=== PATIENT | female | born 1950 | race Caucasian/White ===

== ENCOUNTER 2020-07-30 22:54 | Emergency (ER) | payer MEDICARE, BC ==
[2020-07-30] MEDS ORDERED: Sodium Chloride 0.9% 1,000 ML IV ONE (23:00)
[2020-07-30] MEDS ORDERED: Pantoprazole 40 MG Vial IVPUSH ONE (23:05)
--- NOTE | 2020-07-30 23:13 | EDM.PDOC ---
ED HPI GENERAL MEDICAL PROBLEM - General Chief Complaint: Abdominal Pain Stated Complaint: vomiting blood Time Seen by Provider: 07/30/20 23:05 Source of Information: Reports: Patient History Limitations: Reports: No Limitations - History of Present Illness INITIAL COMMENTS - FREE TEXT/NARRATIVE: This patient is a 69 year old female that presents to the ER. Patient reports that she went to bed about 8:45pm, she was feeling fine without complaint. She reports at about 9:45pm she awoke from her sleep, felt hot, sweaty, nauseated. She reports throwing up 3 times bright red blood. Patient reports she called [facility] because thats where her doctor is located. She reports that they told her to come to the ER. Patient reports her friend was driving her to [facility], but while in route, patient became generally weak, near syncope, diaphoretic. Because of this, they called 911, who called us to alert us she was in route here. As soon, as RN hung up from dispatch, patient arrived outside in a truck driven by friend. Patient was assisted in wheelchair from truck by Jemima KERN and myself. When getting out of truck, patient appears confused, disoriented, weak, but awake. Patient has emesis back on lap with bright red blood in truck, about 20ml. Patient is awake and alert in ER, but weak. As soon, we enter the ER, patient reports she needs to have a BM. Patient placed on bedside toilet. She has a large BM that is black in color. This was tested and is + for blood. Patient assisted into bed. Patient reports she feels lightheaded. Patient denies headache, n, fever, abd pain, back pain, chest pain, shortness of breath. Onset: Today Onset Date: 07/30/20 Onset Time: 09:45 Severity: Moderate Improves with: Reports: None Worsens with: Reports: None Associated Symptoms: Reports: Diaphoresis, Malaise, Nausea/Vomiting, Weakness. Denies: Confusion, Chest Pain, Cough, cough w sputum, Fever/Chills, Headaches, Loss of Appetite, Rash, Seizure, Shortness of Breath, Syncope - Related Data Allergies Allergy/AdvReac Type Severity Reaction Status Date / Time bee pollen Allergy Anaphylactic Verified 07/30/20 22:58 Shock mold Allergy Cannot Verified 07/30/20 22:58 Remember Penicillins Allergy Anaphylactic Verified 07/30/20 22:58 Shock Home Meds: Home Meds atorvaSTATin [Lipitor] 10 mg PO BEDTIME 04/13/16 [History] Venlafaxine [Effexor XR] 75 mg PO DAILY 04/16/16 [History] Albuterol/Ipratropium [DuoNeb 3.0-0.5 MG/3 ML] 3 ml NEB QIDRT PRN 07/30/20 [History] Aspirin [Halfprin] 81 mg PO DAILY 07/30/20 [History] Montelukast [Singulair] 10 mg PO DAILY 07/30/20 [History] Past Medical History HEENT History: Reports: Other (See Below) Other HEENT History: open sinus membrane, plugged right ear Neurological History: Reports: Other (See Below) 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 Denies: Chest Pain Endocrine: Reports: No Symptoms GI/Abdominal: Reports: Black Stool, Hematemesis, Nausea, Vomiting. Denies: Abdominal Pain : Reports: No Symptoms Musculoskeletal: Reports: No Symptoms Skin: Reports: No Symptoms Neurological: Reports: Syncope (near syncope) Psychiatric: Reports: Anxiety Hematologic/Lymphatic: Reports: No Symptoms Immunologic: Reports: No Symptoms ED EXAM, GI/ABD - Physical Exam Exam: See Below Exam Limited By: No Limitations General Appearance: Alert, WD/WN, Anxious, Moderate Distress Eyes: Bilateral: Pale Conjunctiva Ears: Normal External Exam, Normal Canal, Hearing Grossly Normal, Normal TMs Nose: Normal Inspection, Normal Mucosa, No Blood Throat/Mouth: Normal Inspection, Normal Lips, Normal Teeth, Normal Gums, Normal Oropharynx, Normal Voice, No Airway Compromise Head: Atraumatic, Normocephalic Neck: Normal Inspection, Supple, Non-Tender, Full Range of Motion Respiratory/Chest: No Respiratory Distress, Lungs Clear, Normal Breath Sounds, No Accessory Muscle Use, Chest Non-Tender Cardiovascular: Normal Peripheral Pulses, Regular Rate, Rhythm, No Edema, No Gallop, No JVD, No Murmur, No Rub GI/Abdominal Exam: Normal Bowel Sounds, Soft, Non-Tender, No Organomegaly, No Distention, No Abnormal Bruit, No Mass, Pelvis Stable (Female) Exam: Deferred Rectal (Female) Exam: Deferred Back Exam: Normal Inspection, Full Range of Motion. No: CVA Tenderness (L), CVA Tenderness (R) Extremities: Normal Inspection, Normal Range of Motion, Non-Tender, No Pedal Edema, Normal Capillary Refill Neurological: Alert, Oriented, Normal Cognition, No Motor/Sensory Deficits, Confused (When getting from truck disoriented, confused. Became more alert once in the ER.), Other (drowsy, but alert in stretcher. When getting from truck disoriented, confused.) Psychiatric: Anxious Skin Exam: Warm, Intact, No Rash, Diaphoretic, Pallor Lymphatic: No Adenopathy Course - Vital Signs Last Recorded V/S: Last Vital Signs Temp 96 F L 07/30/20 23:10 Pulse 81 07/31/20 01:49 Resp 18 07/31/20 00:30 BP 138/68 07/31/20 01:49 Pulse Ox 97 07/31/20 00:30 - Orders/Labs/Meds Orders: Active Orders 24 hr Category Date Time Status Abdomen Pelvis w Cont [CT] Stat Exams 07/30/20 23:22 Taken Chest w wo Cont [CT] Stat Exams 07/30/20 23:47 Taken CORONAVIRUS COVID-19 RAPID [MOLEC] Stat Lab 07/31/20 00:50 Ordered Pantoprazole [ProTONIX IV] 40 mg Med 07/30/20 23:15 Active Sodium Chloride 0.9% [Normal Saline] 100 ml IV .CONTINUOUS Medication Orders Pantoprazole Sodium 40 mg/ (Sodium Chloride) 100 mls @ 20 mls/hr IV .CONTINUOUS MAREN Last Admin: 07/30/20 23:13 Dose: 20 mls/hr Documented by: MARYSOL Labs: Laboratory Tests 07/30/20 07/30/20 07/30/20 Range/Units 22:57 22:57 23:07 WBC 16.8 H (5.0-10.0) 10^3/uL RBC 4.02 (4.00-5.50) 10^6/uL Hgb 12.5 (12.0-16.0) g/dL Hct 36.4 L (37.0-47.0) % MCV 90.5 (82.0-94.0) fL MCH 31.1 (27.0-32.0) pg MCHC 34.3 (33.0-38.0) g/dL RDW Coeff of Raven 12.1 (11.0-15.0) % Plt Count 398 (150-400) 10^3/uL Neut % (Auto) 58.9 (35-85) % Lymph % (Auto) 31.5 (10-55) % Price % (Auto) 8.1 (0-16) % Eos % (Auto) 1.1 (0-5) % Baso % (Auto) 0.4 (0-3) % Neut # (Auto) 9.88 H (1.80-7.00) 10^3/uL Lymph # (Auto) 5.30 H (1.00-4.80) 10^3/uL Price # (Auto) 1.36 H (0.00-0.80) 10^3/uL Eos # (Auto) 0.19 (0.00-0.45) 10^3/uL Baso # (Auto) 0.07 10^3/uL PT 11.6 (9.7-12.3) SEC INR 1.06 (0.92-1.18) Sodium (136-145) mEq/L Potassium (3.5-5.0) mEq/L Chloride (98-106) mEq/L Carbon Dioxide (21-32) mmol/L BUN (7-18) mg/dL Creatinine (0.6-1.0) mg/dL Est Cr Clr Drug Dosing mL/min Estimated GFR (MDRD) (>=60) mL/min Glucose (75-99) mg/dL Lactic Acid (0.4-2.0) mmol/L Calcium (8.4-10.1) mg/dL Total Bilirubin (0.0-1.0) mg/dL AST (15-37) U/L ALT (12-78) U/L Alkaline Phosphatase (46-116) U/L C-Reactive Protein (0.2-0.8) mg/dL Total Protein (6.4-8.2) g/dL Albumin (3.4-5.0) g/dL Blood Type O POSITIVE Gel Antibody Screen Negative 07/30/20 07/30/20 Range/Units 23:07 23:07 WBC (5.0-10.0) 10^3/uL RBC (4.00-5.50) 10^6/uL Hgb (12.0-16.0) g/dL Hct (37.0-47.0) % MCV (82.0-94.0) fL MCH (27.0-32.0) pg MCHC (33.0-38.0) g/dL RDW Coeff of Raven (11.0-15.0) % Plt Count (150-400) 10^3/uL Neut % (Auto) (35-85) % Lymph % (Auto) (10-55) % Price % (Auto) (0-16) % Eos % (Auto) (0-5) % Baso % (Auto) (0-3) % Neut # (Auto) (1.80-7.00) 10^3/uL Lymph # (Auto) (1.00-4.80) 10^3/uL Price # (Auto) (0.00-0.80) 10^3/uL Eos # (Auto) (0.00-0.45) 10^3/uL Baso # (Auto) 10^3/uL PT (9.7-12.3) SEC INR (0.92-1.18) Sodium 140 (136-145) mEq/L Potassium 4.1 (3.5-5.0) mEq/L Chloride 103 (98-106) mEq/L Carbon Dioxide 23 (21-32) mmol/L BUN 24 H D (7-18) mg/dL Creatinine 1.0 (0.6-1.0) mg/dL Est Cr Clr Drug Dosing 40.63 mL/min Estimated GFR (MDRD) 55 L (>=60) mL/min Glucose 167 H (75-99) mg/dL Lactic Acid 2.4 H (0.4-2.0) mmol/L Calcium 8.7 (8.4-10.1) mg/dL Total Bilirubin 0.7 (0.0-1.0) mg/dL AST 16 (15-37) U/L ALT 24 (12-78) U/L Alkaline Phosphatase 97 (46-116) U/L C-Reactive Protein < 0.2 L (0.2-0.8) mg/dL Total Protein 6.7 (6.4-8.2) g/dL Albumin 3.3 L (3.4-5.0) g/dL Blood Type Gel Antibody Screen Meds: Medications Generic Name Dose Route Start Last Admin Trade Name Freq PRN Reason Stop Dose Admin Pantoprazole Sodium 40 mg/ 100 mls @ 20 mls/hr 07/30/20 23:15 07/30/20 23:13 Sodium Chloride IV 20 mls/hr .CONTINUOUS MAREN Administration Discontinued Medications Generic Name Dose Route Start Last Admin Trade Name Freq PRN Reason Stop Dose Admin Sodium Chloride 1,000 mls @ 999 mls/hr 07/30/20 23:00 07/30/20 23:00 Normal Saline IV 07/31/20 00:00 999 mls/hr .BOLUS ONE Administration Iopamidol 100 ml 07/30/20 23:38 07/31/20 00:14 Iopamidol 755 Mg/Ml 100 Ml Bottle IVPUSH 07/30/20 23:39 100 ml ONETIME ONE Administration Pantoprazole Sodium 80 mg 07/30/20 23:05 07/30/20 23:12 Pantoprazole 40 Mg Vial IVPUSH 07/30/20 23:06 80 mg ONETIME ONE Administration - Radiology Interpretation Free Text/Narrative:: CT Abd/Pelvis with contrast: No acute findings Chest with and without contrast: no cause of hemoptysis. Incidental circumferential mucosal thickening of the distal esophagus with unusual paraesophageal lymph nodes. Recommend GI consultation for direct visualization if not done recently. CT Results Date: 07/31/20 CT Results Time: 01:16 - Re-Assessments/Exams Free Text/Narrative Re-Assessment/Exam: 07/30/20 23:00 Patient hooked to woodworking machine operator, her BP is 94/72, HR 85. Patient appears pallor in color. Patient NOT on beta leland. IV started, NS fluid bolus started, Protonix started, labs drawn. Patient appears generally weak, drowsy appearing. IV fluids started due to active bleeding with hypotension. 07/30/20 23:28 Current BP is 109/76, HR 70. Patient is sitting up in stretcher. Reports she doesnt feel as hot and sweaty. She reports she has no pain. Reports her lighthe adedness has improved. Patient is now more coherent, alert, and oriented. She reports that from the time she woke up to the time she entered the ER, patient does not recall that time period. She now reports to me that she did not actually vomit. She has now given me new information. She reports that prior to going to bed, she swallowed her pills. She reports that one of her pills got stuck in her throat. She reports it felt like it was still there when she went to bed, then she fell asleep. She reports that she then woke up and coughed x3 with a gurgling sensation n her throat. She reports each time she coughed it was bright red blood with clots. She reports she does not think that she actually vomited. Due to patient now changed history, I will also include a contrast and without contrast CT of the chest. Patient reports she no longer has a sensation of a pill stuck in her throat. 07/31/20 00:00 I called [facility] about this patient for transfer. They will call me back. 07/31/20 00:32 [facility] has called back. I spoke to Dr. Mcclellan about this patient for transfer. He reports patient does need to be transferred, but would like to have CT results before determining what department to transfer patient to in the hospital, ER or floor. Still awaiting CT results. I asked about going ahead and transferring patient prior to having CT results, they will call me back. Patient BP is currently 140/61, HR 84 after 1 L NS. Patient reports she is feeling much better. 07/31/20 00:51 [facility] has called back, they would like CT results prior to transfer. I will call them with results once I have them. 07/31/20 01:20 I called and spoke to Godfrey at [facility] [place]. I have given her results of the CT. She will relay the message to Dr. Mcclellan and see if we can transfer the patient. 07/31/20 01:42 I called [facility] and spoke to [facility]. She has informed me that Dr. Mcclellan has accepted the patient. [facility] is in route to transfer patient. Patient reports she has no complaints at this time. BP 144/70, HR 78. Departure - Departure Time of Disposition: 02:03 Disposition: DC/Tfer to Acute Hospital 02 Condition: Fair Clinical Impression: Hemoptysis, Esophageal thickening GI bleed Qualifiers: GI bleed type/associated pathology: unspecified gastrointestinal hemorrhage type Qualified Code(s): K92.2 - Gastrointestinal hemorrhage, unspecified Esophageal foreign body Qualifiers: Encounter type: initial encounter Qualified Code(s): T18.108A - Unspecified foreign body in esophagus causing other injury, initial encounter - Discharge Information *PRESCRIPTION DRUG MONITORING PROGRAM REVIEWED*: Not Applicable *COPY OF PRESCRIPTION DRUG MONITORING REPORT IN PATIENT KYLE: Not Applicable Referrals: Nathaly Kaur MD [Primary Care Provider] - Forms: ED Department Discharge Sepsis Event Note (ED) - Evaluation Sepsis Screening Result: No Definite Risk - Focused Exam Vital Signs: Vital Signs Temp Pulse Resp BP Pulse Ox 07/31/20 01:49 81 138/68 07/31/20 00:30 84 18 140/61 97 07/31/20 00:15 86 18 139/78 100 07/31/20 00:00 118/49 L 07/30/20 23:45 65 18 116/53 L 96 07/30/20 23:30 70 18 115/59 L 95 07/30/20 23:15 72 18 109/56 L 96 07/30/20 23:10 96 F L 69 18 119/57 L 96 07/30/20 23:05 16 106/58 L 99 07/30/20 23:00 18 94/72 97 07/30/20 22:55 95.8 F L - My Orders Last 24 Hours: My Active Orders 07/30/20 23:15 Pantoprazole [ProTONIX IV] 40 mg Sodium Chloride 0.9% [Normal Saline] 100 ml IV .CONTINUOUS 07/30/20 23:22 Abdomen Pelvis w Cont [CT] Stat 07/30/20 23:47 Chest w wo Cont [CT] Stat 07/31/20 00:50 CORONAVIRUS COVID-19 RAPID [MOLEC] Stat - Assessment/Plan Last 24 Hours: My Active Orders 07/30/20 23:15 Pantoprazole [ProTONIX IV] 40 mg Sodium Chloride 0.9% [Normal Saline] 100 ml IV .CONTINUOUS 07/30/20 23:22 Abdomen Pelvis w Cont [CT] Stat 07/30/20 23:47 Chest w wo Cont [CT] Stat 07/31/20 00:50 CORONAVIRUS COVID-19 RAPID [MOLEC] Stat Plan: PLEASE SEE RN NOTE FOR PFSH This patient is going to be transferred to [facility]. The risk vs benefits have been explained to the patient. The risk of transfer are mvc, , worsening of condition, bleeding. The risk of staying in [place] is worsening of condition, no scope abilities, . The benefits of staying in [place] are close to home. The benefits of transfer are higher level of care, scoping abilities.
[2020-07-30] MEDS ORDERED: Pantoprazole 40 MG in Sodium Chloride 0.9% 100 ML IV SCH (23:15)
[2020-07-30 23:18] LABS: CHLORIDE,CL 103 mEq/L (98-106); SODIUM,NA 140 mEq/L (136-145)
[2020-07-30] MEDS ORDERED: Iopamidol 755 Mg/ML 100 ML Bottle IVPUSH ONE (23:38)
[2020-07-31 01:49] VITALS: PULSE 81
[2020-07-31 02:19] VITALS: BP 148/80
== END 2020-07-31 02:43 ==
LOC: CC.ED 22:54
DX: T18.108A Unspecified foreign body in esophagus causing other injury, initial encounter (principal); R04.2 Hemoptysis; K92.2 Gastrointestinal hemorrhage, unspecified; R23.4 Changes in skin texture; Z91.030 Bee allergy status; Z88.0 Allergy status to penicillin; Z91.048 Other nonmedicinal substance allergy status; Z20.828 Contact with and (suspected) exposure to other viral communicable diseases
CPT/HCPCS: 36415; 71270; 74177; 80053; 83605; 85025; 85610; 86140; 86850; 86900; 86901; 96365; 96366; 99284; 99285-25; C9113; J7030; Q9967; U0002

== ENCOUNTER 2021-06-28 09:54 | Emergency (ER) | payer MEDICARE, BC ==
[2021-06-28 10:05] VITALS: BP 163/87; PULSE 78
== END 2021-06-28 11:55 | disposition home or self-care (01) ==
LOC: CC.ED 09:54
DX: S82.891A Other fracture of right lower leg, initial encounter for closed fracture (principal); E78.00 Pure hypercholesterolemia, unspecified; Z72.0 Tobacco use; Z79.82 Long term (current) use of aspirin; Z79.899 Other long term (current) drug therapy; W01.0XXA Fall on same level from slipping, tripping and stumbling without subsequent striking against object, initial encounter
CPT/HCPCS: 73610-RT; 99283; 99283-25